=== PATIENT | female | born 1975 | race Caucasian/White ===

== ENCOUNTER 2016-12-31 08:27 | Emergency (ER) | payer OTHER | END 2016-12-31 10:06 | disposition home or self-care (01) | LOC: ER1 08:27 | DX: S93.601A Unspecified sprain of right foot, initial encounter (principal); S93.504A Unspecified sprain of right lesser toe(s), initial encounter; W01.0XXA Fall on same level from slipping, tripping and stumbling without subsequent striking against object, initial encounter; Y92.828 Other wilderness area as the place of occurrence of the external cause | CPT/HCPCS: 73630; 99283 ==

== ENCOUNTER → 2021-08-18 | Outpatient (CLI) | payer OTHER ==
[2021-08-18 09:17] LABS: HEMOGLOBIN 13.9 gm/dl (12.3-15.3); RED BLOOD COUNT 4.8 M/UL (4.00-5.10); WHITE BLOOD COUNT 5.2 K/UL (4.5-11.0)
[2021-08-18 09:18] LABS: BUN/CREATININE RATIO 22 (0-10)
== END ==
LOC: LAB 08:26
PROVIDERS: Physician Assistant
DX: I10 Essential (primary) hypertension (principal); L65.9 Nonscarring hair loss, unspecified
CPT/HCPCS: 36415; 80053; 80061; 82607; 84439; 84443; 85025